=== PATIENT | female | born 1980 | race Asian ===

== ENCOUNTER 2024-01-07 09:36 | Outpatient (REF) | payer MEDICAID, SELFPAY ==
[2024-01-07 11:14] LABS: MANUAL DIFF FLAG NO
[2024-01-07 11:30] LABS: Basophils Percent Auto 0.6 % (0-2); Eosinophils Absolute Auto 0.1 X10*3/uL (0.0-0.4); Eosinophils Percent Auto 2.7 % (0-4); Hematocrit 32.1 % (37.0-47.0); Hemoglobin 10.1 g/dl (12.0-16.0); Imm Gran Abs Auto 0.02 X10*3/uL (0.00-0.03); Imm Gran Pct Auto 0.4 % (0.0-0.4); Lymphocytes Absolute Auto 1.4 X10*3/uL (1.2-4.9); Lymphocytes Percent Auto 26.3 % (20-40); Mean Corpuscular HGB Conc 31.5 g/dl (31.0-35.0); Mean Corpuscular Hemoglobin 24.1 pg (27.0-33.0); Mean Corpuscular Volume 76.6 fL (80.0-98.0); Mean Platelet Volume 10.4 fL (9.4-12.3); Monocytes Absolute Auto 0.4 X10*3/uL (0.1-1.2); Monocytes Percent Auto 7.5 % (2-11); Neutrophils Absolute Auto 3.3 x10*3/uL (2.0-8.3); Neutrophils Percent Auto 62.5 % (45-73); Platelet Count 225 X10*3/uL (160-400); Red Blood Count 4.19 X10*6/uL (4.20-5.50); Red Cell Distribution Width 14.6 % (11.0-16.0); White Blood Count 5.2 X10*3/uL (4.8-10.8)
[2024-01-07 11:56] LABS: Alanine Aminotransferase 8 U/L (0-31); Albumin Level 3.9 g/dL (3.5-5.0); Alkaline Phosphatase 46 U/L (39-117); Anion Gap 12 (12-20); Aspartate Amino Transferase 12 U/L (5-31); Bilirubin Total 0.5 mg/dL (0.0-1.0); Blood Urea Nitrogen 8 mg/dL (9-16); Calcium 9.6 mg/dL (8.4-10.2); Carbon Dioxide 23 mmol/L (22-29); Chloride 109 mmol/L (96-108); Estimated Glomerular Filt Rate > 60; Glucose Random 98 mg/dL (60-115); Potassium 4.3 mmol/L (3.3-5.1); Sodium 140 mmol/L (135-145); Total Protein 6.8 g/dL (6.5-8.0); Uric Acid 4.2 mg/dL (2.4-5.7)
== END 2024-01-07 09:37 | disposition home or self-care (01) ==
LOC: HO.HHCL 09:36
PROVIDERS: Visit Provider Nurse Practitioner Family
DX: M25.50 Pain in unspecified joint (principal)
CPT/HCPCS: 36415; 80053; 84550; 85025

== ENCOUNTER 2024-01-20 14:36 | Outpatient (REF) | payer MEDICAID, SELFPAY ==
[2024-01-20 17:15] LABS: Iron 27 mcg/dL (30-160); Percent Iron Saturation 8 % (15-50); Total Iron Binding Capacity 348 mcg/dL (228-428); Unsaturated Iron Binding 321 ug/dL
[2024-01-20 17:21] LABS: Ferritin 8 ng/mL (10-250)
== END 2024-01-20 14:37 | disposition home or self-care (01) ==
LOC: HO.HHCL 14:36
PROVIDERS: Visit Provider Nurse Practitioner Family
DX: R79.89 Other specified abnormal findings of blood chemistry (principal)
CPT/HCPCS: 36415; 82728; 83540

== ENCOUNTER 2024-08-19 20:31 | Emergency (ER) | payer MEDICAID, OTHER, SELFPAY ==
[2024-08-19 20:40] VITALS: BP 108/63; PULSE 76; RESP 18; TEMP 36.3; O2SAT 99; BMI 20.7
[2024-08-19 21:08] LABS: MANUAL DIFF FLAG NO
[2024-08-19 21:09] LABS: Basophils Percent Auto 0.3 % (0-2); Eosinophils Percent Auto 0.5 % (0-4); Hematocrit 33.4 % (37.0-47.0); Hemoglobin 11.3 g/dl (12.0-16.0); Imm Gran Abs Auto 0.02 X10*3/uL (0.00-0.03); Imm Gran Pct Auto 0.3 % (0.0-0.4); Lymphocytes Absolute Auto 2.1 X10*3/uL (1.2-4.9); Lymphocytes Percent Auto 28.6 % (20-40); Mean Corpuscular HGB Conc 33.8 g/dl (31.0-35.0); Mean Corpuscular Hemoglobin 27.2 pg (27.0-33.0); Mean Corpuscular Volume 80.3 fL (80.0-98.0); Mean Platelet Volume 10.1 fL (9.4-12.3); Monocytes Absolute Auto 0.7 X10*3/uL (0.1-1.2); Monocytes Percent Auto 8.8 % (2-11); Neutrophils Absolute Auto 4.5 x10*3/uL (2.0-8.3); Neutrophils Percent Auto 61.5 % (45-73); Platelet Count 208 X10*3/uL (160-400); Red Blood Count 4.16 X10*6/uL (4.20-5.50); White Blood Count 7.4 X10*3/uL (4.8-10.8)
[2024-08-19 21:23] LABS: Alanine Aminotransferase 7 U/L (0-31); Alkaline Phosphatase 42 U/L (39-117); Anion Gap 11 (12-20); Aspartate Amino Transferase 21 U/L (5-31); Bilirubin Total 0.3 mg/dL (0.0-1.0); Blood Urea Nitrogen 9 mg/dL (9-16); Calcium 9.1 mg/dL (8.4-10.2); Carbon Dioxide 25 mmol/L (22-29); Chloride 110 mmol/L (96-108); Estimated Glomerular Filt Rate > 60; Glucose Random 96 mg/dL (60-115); Potassium 3.8 mmol/L (3.3-5.1); Sodium 142 mmol/L (135-145); Total Protein 6.7 g/dL (6.5-8.0)
== END 2024-08-20 01:38 | disposition left against medical advice (07) ==
LOC: HO.ED 08-20 01:37
PROVIDERS: Emergency Provider Emergency Medicine
DX: R51.9 Headache, unspecified (principal)
CPT/HCPCS: 36415; 80053; 85025; 99281

== ENCOUNTER 2024-08-24 16:29 | Outpatient (REF) | payer MEDICAID, OTHER, SELFPAY ==
--- OUTSIDE RECORDS SUMMARY | 2024-08-24 19:00 | XMS_ITS | Clinical Summary ---
Author Organization [facility] Address [address] [place] [address] Phone Care Team Providers Care Bean Roaster Name Role Phone Physician, Pcp Unknown Primary Care Provider Sana vailable Allergies No known active allergies Encounters Date Type Department Care Team Description 08/23/2024 2:00 PM EDT - 08/23/2024 6:51 PM EDT Emergency [facility] Emergency [address] [place] [address] Discharge Disposition: Home or Self Care from Last 3 Months Social History Tobacco Use Types Packs/Day Years Used Date Smoking Tobacco: Never Tobacco Cessation:Counseling Given: Not Answered Alcohol Use Standard Drinks/Week Comments Never 0 (1 standard drink = 0.6 oz pur e alcohol) Comments Unknown Sex and Gender Information Value Date Recorded Sex Assigned at Not on file Legal Sex Female 2:00 PM EDT Gender Identity Not on file Sexual Orientation Not on file Obstetrics History Last Filed Vital Signs Vital Sign Reading Time Taken Comments Blood Pressure 109/72 08/23/2024 2:12 PM EDT Pulse 58 08/23/2024 2:12 PM EDT Temperature 36.7 ??C (98.1 ??F) 08/23/2024 2:12 PM ED T Respiratory Rate 16 08/23/2024 2:12 PM EDT Oxygen Saturation 96% 08/23/2024 2:12 PM EDT Inhaled Oxygen Concentration - - Weight 47.2 kg (104 lb) 08/23/2024 2:12 PM EDT Height 149.9 cm (4' 11 ) 08/23/2024 2:12 PM EDT Body Mass Index 21.01 08/23/2024 2:12 PM EDT Plan of Treatment Health Maintenance Due Date Last Done Comments Breast Cancer Screening 1981 Cervical Cancer Screening: P ap Smear 2002 COVID-19 Vaccine (2023-2 5 season) 2024 Hepatitis B Vaccines (2 of 3 - 19+ 3-dose series) 08/16/2024 07/19/2024 Depression Screening 08/24/2024 HIV Screening 08/24/2024 Hepatitis C Screening 08/24/2024 Social Influencers of Health Screening 08/24/2024 DTaP,Tdap,and Td Vaccines (2 - Td or Tdap) 07/19/2034 07/19/2024 Influenza Vaccine Completed 07/19/2024 MMR Vaccines Aged Out 07/19/2024 No longer eligi ble based on patient's age to complete this topic Varicella Vaccines Aged Out 07/19/2024 No longer eligible based on patient's age to complete this topic HIB Vaccines Aged Out No longer eligi ble based on patient's age to complete this topic HPV Vaccines Aged Out No longer eligi ble based on patient's age to complete this topic Hepatitis A Vaccines Aged Out No long er eligible based on patient's age to complete this topic IPV Vaccines Aged Out No longer eligi ble based on patient's age to complete this topic Meningococcal ACWY Vaccine Aged Out N o longer eligible based on patient's age to complete this topic Meningococcal B Vaccine Aged Out No l onger eligible based on patient's age to complete this topic Pneumococcal Vaccine: Pediat rics (0 to 5 Years) and At-Risk Patients (6 to 64 Years) Aged Out No longer eligi ble based on patient's age to complete this topic RSV Immunization Patients Un angel 20 months Aged Out No longer eligible b ased on patient's age to complete this topic Procedures Procedure Name Priority Date/Time Associated Diagnosis Comments HEPATITIS B CORE ANTIBODY IGM STAT 08/23/2024 2:25 PM EDT HEPATITIS B SURFACE ANTIBODY STAT 08/23/2024 2:25 PM EDT COMPREHENSIVE METABOLIC PANEL STAT 08/23/2024 2:25 PM EDT from Last 3 Months Results * Hepatitis B core antibody IgM (08/23/2024 2:25 PM EDT) Hep B Core IgM Negative Negative LAB CHEMISTRY METHOD 08/23/2024 6:[address] [facility] Blood Venous blood specimen / Unknown Venipuncture / Unknown 08/23/2024 2:25 PM EDT 08/23/2024 2:34 PM EDT [facility] - 08/23/2024 6:53 PM EDT Over the counter supplements containing high doses of biotin may interfere with this assay. ??If interference is suspected, patients shoud be retested after refraining from biotin supplements for 72 hours. us Vern Jarvis MD LAB BLOOD ORDERABLES Final Resu lt Performing Organization Address [facility] Co de Phone Number [facility] [address] [place] [address], [place] [phone] * (ABNORMAL) Hepatitis B surface antibody (08/23/2024 2:25 PM EDT) Hepatitis B Surface Ab Positive (A) Negative LAB CHEMISTRY METHOD 08/23/2024 3:[address] [facility] Hepatitis B Surface Ab Quantitative >1,000.0 mIU/mL LAB CHEMISTRY METHOD 08/23/2024 3:[address] [facility] Blood Venous blood specimen / Unknown Venipuncture / Unknown 08/23/2024 2:25 PM EDT 08/23/2024 2:[address] [facility] - 08/23/2024 3:48 PM EDT >=10 mIU/mL is considered to be consistent with immunity. us Vern Jarvis MD LAB BLOOD ORDERABLES Final Resu lt Performing Organization Address [facility]/ZIP Co de Phone Number [facility] [address] [place] [address], [place] [phone] * Comprehensive metabolic panel (08/23/2024 2:25 PM EDT) Pathologist [facility] Sodium 140 133 - 145 mmol/L LAB CHEMISTRY METHOD 08/23/2024 3:07 PM [facility] Potassium 4.2 3.5 - 5.5 mmol/L LAB CHEMISTRY METHOD 08/23/2024 3:07 PM [facility] Chloride 110 96 - 110 mmol/L LAB CHEMISTRY METHOD 08/23/2024 3:07 PM [facility] CO2 25 21 - 32 mmol/L LAB CHEMISTRY METHOD 08/23/2024 3:07 PM [facility] Anion Gap 5 3 - 11 LAB CHEMISTRY METHOD 08/23/2024 3:07 PM [facility] Glucose 78 70 - 100 mg/dL LAB CHEMISTRY METHOD 08/23/2024 3:07 PM [facility] BUN 7 5 - 25 mg/dL LAB CHEMISTRY METHOD 08/23/2024 3:07 PM [facility] Creatinine 0.53 0.50 - 1.10 mg/dL LAB CHEMISTRY METHOD 08/23/2024 3:07 PM [facility] eGFR 118 >=60 mL/min/1. 73m2 LAB CHEMISTRY METHOD 08/23/2024 3:07 PM [facility] Comment:Calculation based on the??Chronic Kidney Disease Epidemiology Collaboration (CKD-EPI) equation refit??without adjustment for race. BUN/Creatinine Ratio 13.2 LAB CHEMISTRY METHOD 08/23/2024 3:07 PM [facility] Calcium 9.0 8.5 - 10.5 mg/dL LAB CHEMISTRY METHOD 08/23/2024 3:07 PM [facility] AST (SGOT) 16 10 - 42 unit/L LAB CHEMISTRY METHOD 08/23/2024 3:07 PM [facility] ALT (SGPT) 15 10 - 60 unit/L LAB CHEMISTRY METHOD 08/23/2024 3:07 PM [facility] Alkaline Phosphatase 46 42 - 121 unit/L LAB CHEMISTRY METHOD 08/23/2024 3:[address] [facility] Total Protein 6.8 6.0 - 8.0 g/dL LAB CHEMISTRY METHOD 08/23/2024 3:[address] [facility] Albumin 3.6 3.2 - 5.0 g/dL LAB CHEMISTRY METHOD 08/23/2024 3:[address] [facility] Total Bilirubin 0.4 0.0 - 1.4 mg/dL LAB CHEMISTRY METHOD 08/23/2024 3:[address] [facility] Blood Venous blood specimen / Unknown Venipuncture / Unknown 08/23/2024 2:25 PM EDT 08/23/2024 2:34 PM EDT Vern Jarvis MD LAB BLOOD ORDERABLES Final Resu lt [facility] [address] [place] [address], from Last 3 Months Insurance MEDICAID - [place] Care Teams Bean Roaster Relationship Specialty Start Date End Date Physician, Pcp Unknown PCP - General 08/23/24
--- OUTSIDE RECORDS SUMMARY | 2024-08-24 19:00 | XMS_ITS | Clinical Summary ---
Author Organization [employer] Address [address] [facility] [address] [place] [address] Care Team Providers Care Gum Mixer Name Role Phone Unavailable Primary Care Provider Unavailabl e Allergies No known active allergies Medications ferrous sulfate 325 (65 Fe) MG EC tablet Take 1 tablet (325 mg) by mouth with breakfast. Do not crush, chew, or split. 30 tablet 01/21/2024 01/21/20 25 Active dolutegravir (Tivicay) 50 MG tablet Take 1 tablet (50 mg) by mouth Once per day. For 28 days 28 tablet 08/24/2024 Active emtricitabine-t enofovir DF (Truvada) 200-300 MG tablet Take 1 tablet by mouth Once per day. For 28 days 30 tablet 08/24/2024 08/25/19 26 Active ibuprofen 800 MG tablet Take 1 tablet (800 mg) by mouth every 8 (eight) hours if needed for moderate pain or fever. 30 tablet 08/24/2024 09/24/19 25 Active Active Problems Problem Noted Date Diagnosed Date Accident caused by a hypodermic needle Assessment & Plan (08/24/2024 4:31 PM EDT): Needle prick x2 days ago at medical facility. Very faint needle prick wound. No swelling, erythema or induration. -discussed pt needs to get her second Hep B shot 09/18/24. -prescribed dolutegravir (Tivicay) 50 MG and emtricitabine-tenofovir DF (Truvada) 200-300 MG 08/24/24 -ordered HIV, Hep B and C antibodies 08/24/24 -scheduled f/u 10/05/24 for follow-up HIV, Hep B and C testing. Intractable headache 08/24/2024 Assessment & Plan (08/24/2024 4:20 PM EDT): Occasional, non-specific headache pattern. Minimal to no relief with at home medications. Denies preceding nausea or aura. -prescribed ibuprofen 800 MG 08/25/23 Iron deficiency anemia 01/21/2024 COVID-19 virus infection 12/02/2023 Assessment & Plan (12/02/2023 4:17 PM EDT): Pt w dry cough, neck pain,BEJARANO,myalgias, VS are wnl Here w covid 19 +, flu neg test result Pt has mild covid symptoms , neck pain appears most likely muscular in nature w no rigidity on exam Reports got 3 vaccines of COVID 19 in [place] -no indication for tx w paxlovid given no comorbidities and no in age range -hydration advised - tylenol ,NSAIDs PRN -advised hand hygiene,isolation,mask use and to come out in 5 days of symptoms w N95 for 10 days use if asymptomatic by then -alarm signs and symptoms discussed -send message for new pt apt needed to start care w new PCP Encounters Date Type Department Care Team Description 08/24/2024 3:40 PM EDT Office Visit [facility] [address] [place] [phone] Annabel Carter MD Accident caused by hypodermic needle, initial encounter (Primary Dx); Intractable headache, unspecified chronicity pattern, unspecified headache type 08/24/2024 Travel 07/19/2024 3:55 PM EDT Nurse Only [facility] [address] [place], [place] [phone] Jeana Pham LPN Encounter for immunization (Primary Dx) 07/19/2024 Travel from Last 3 Months Immunizations Name Administration Dates Next Due Hep B, adult 07/19/2024 Influenza, seasonal, injectable, preservative fr ee 07/19/2024 MMR 07/19/2024 Tdap 07/19/2024 Varicella 07/19/2024 Social History Tobacco Use Types Packs/Day Years Used Date Smoking Tobacco: Never Smokeless Tobacco: Never Tobacco Cessation:Counseling Given: Not Answered Alcohol Use Standard Drinks/Week Comments Never 0 (1 standard drink = 0.6 oz pur e alcohol) Comments Unknown Sex and Gender Information Value Date Recorded Sex Assigned at Female 12/02/2023 1:58 PM EDT Legal Sex Female 12:41 PM EDT Gender Identity Female 12/02/2023 1:58 PM EDT Sexual Orientation Straight 12/02/2023 1: 58 PM EDT Last Filed Vital Signs Vital Sign Reading Time Taken Comments Blood Pressure 119/65 08/24/2024 3:36 PM EDT Pulse 71 08/24/2024 3:36 PM EDT Temperature 36.8 ??C (98.3 ??F) 08/24/2024 3:36 PM ED T Respiratory Rate 19 08/24/2024 3:36 PM EDT Oxygen Saturation 99% 08/24/2024 3:36 PM EDT Inhaled Oxygen Concentration - - Weight 49.4 kg (109 lb) 08/24/2024 3:36 PM EDT Height - - Body Mass Index - - Plan of Treatment Upcoming Encounters Date Type Department Care Team (Late st Contact Info) Description 10/05/2024 1:00 PM EDT Office Visit [facility] [address] [place] [phone] 12/10/2024 10:30 AM EDT Office Visit [facility] [address] [place] [phone] [facility] [address] [place] [address] Health Maintenance Due Date Last Done Comments Depression Screening 1981 HIV Screening 1981 SDOH Screening 1981 Alcohol/Substance Use Screening 1993 Family Planning (PISQ) 1996 Hepatitis C Screening 1999 Pap Smear 2002 Cervical Cancer Screening 2011 HPV/Cotest 2011 Mammogram 2021 COVID-19 Vaccine ( - 2023-2 5 season) 2024 Hepatitis B Vaccines (2 of 3 - 19+ 3-dose series) 08/16/2024 07/19/2024 IPV Vaccines (2 of 3 - Adult catch-up series) 08/16/2024 07/19/2024 Tobacco Screening 08/24/2025 08/24/2024 Zoster Vaccines (1 of 2) 2031 DTaP/Tdap/Td Vaccines (2 - T d or Tdap) 07/19/2034 07/19/2024 RSV Patients and Pa tients Aged 60 years or older (1 - 1-dose 75+ series) 2056 Influenza Vaccine Completed 07/19/2024 HIB Vaccines Aged Out No longer eligi ble based on patient's age to complete this topic HPV Vaccines Aged Out No longer eligi ble based on patient's age to complete this topic Hepatitis A Vaccines Aged Out No long er eligible based on patient's age to complete this topic Meningococcal Vaccine Aged Out No janee george eligible based on patient's age to complete this topic Pneumococcal Vaccine: Pediat rics (0 to 5 Years) and At-Risk Patients (6 to 49) Years) Aged Out No longer elig ible based on patient's age to complete this topic RSV under 20 months Aged Out No longe r eligible based on patient's age to complete this topic Rotavirus Vaccines Aged Out No longer eligible based on patient's age to complete this topic Insurance [email or web address] [facility] F[facility]
--- OUTSIDE RECORDS SUMMARY | 2024-08-24 19:00 | XMS_ITS | Encounter Summary ---
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- reports headache today Encounter Details Date Type Department Care Team (Late st Contact Info) Description 08/23/2024 2:00 PM EDT - 08/23/2024 6:51 PM EDT Emergency [facility] Emergency [address] [place] [address] Discharge Disposition: Home or Self Care Social History Tobacco Use Types Packs/Day Years [...] on file Sexual Orientation Not on file documented as of this encounter Last Filed Vital Signs Vital Sign Reading [...] Mass Index 21.01 08/23/2024 2:12 PM EDT documented in this encounter Discharge Disposition Disposition Code Departure Means Destination Home or Self Care documented in this encounter Progress Notes * Frederic Hernandez RN - 08/23/2024 2:07 PM EDT Pt was stuck by a needle yesterday while taking the trash out at work, reports needle broke the skin. Today she has complaints of headache and general malaise. documented in this encounter Plan of Treatment Not on file documented as of this encounter Procedures Procedure Name Priority Date/Time Associated Diagnosis Comments HEPATITIS B CORE ANTIBODY IGM STAT 08/23/2024 2:25 PM EDT HEPATITIS B SURFACE ANTIBODY STAT 08/23/2024 2:25 PM EDT COMPREHENSIVE METABOLIC PANEL STAT 08/23/2024 2:25 PM EDT documented in this encounter Results * Hepatitis B core antibody IgM (08/23/2024 2:25 PM EDT) Pathologist [facility] Hep B Core IgM Negative Negative LAB CHEMISTRY METHOD 08/23/2024 6:53 PM EDT [facility] Blood Venous blood specimen / Unknown Venipuncture / Unknown 08/23/2024 2:25 PM EDT 08/23/2024 2:34 PM EDT Narrative [facility] - 08/23/2024 6:53 PM EDT Over the counter supplements containing high doses of biotin may interfere with this assay. ??If interference is suspected, patients shoud be retested after refraining from biotin supplements for 72 hours. us Vern Jarvis MD LAB BLOOD ORDERABLES Final Resu lt [facility] [address] [place] [address], * (ABNORMAL) Hepatitis B surface antibody (08/23/2024 2:25 PM EDT) Pathologist [facility] Hepatitis B Surface Ab Positive (A) Negative LAB CHEMISTRY METHOD 08/23/2024 3:48 PM EDT [facility] Hepatitis B Surface Ab Quantitative >1,000.0 mIU/mL LAB CHEMISTRY METHOD 08/23/2024 3:48 PM EDT [facility] Blood Venous blood specimen / Unknown Venipuncture / Unknown 08/23/2024 2:25 PM EDT 08/23/2024 2:34 PM EDT Narrative [facility] - 08/23/2024 3:48 PM EDT >=10 mIU/mL is considered to be consistent with immunity. us Vern Jarvis MD LAB BLOOD ORDERABLES Final Resu lt [facility] [address] [place] [address], [place] [phone] * Comprehensive metabolic panel (08/23/2024 2:25 PM EDT) Sodium 140 133 - 145 mmol/L LAB CHEMISTRY METHOD 08/23/2024 3:07 PM [facility] Potassium 4.2 3.5 - 5.5 mmol/L LAB CHEMISTRY METHOD 08/23/2024 3:07 PM [facility] Chloride 110 96 - 110 mmol/L LAB CHEMISTRY METHOD 08/23/2024 3:07 PM [facility] CO2 25 21 - 32 mmol/L LAB CHEMISTRY METHOD 08/23/2024 3:07 PM [facility] Anion Gap 5 3 - 11 LAB CHEMISTRY METHOD 08/23/2024 3:07 PM [facility] Glucose 78 70 - 100 mg/dL LAB CHEMISTRY METHOD 08/23/2024 3:07 PM [facility] BUN 7 5 - 25 mg/dL LAB CHEMISTRY METHOD 08/23/2024 3:07 PM [facility] Creatinine 0.53 0.50 - 1.10 mg/dL LAB CHEMISTRY METHOD 08/23/2024 3:07 PM [facility] eGFR 118 >=60 mL/min/1. 73m2 LAB CHEMISTRY METHOD 08/23/2024 3:07 PM [facility] Comment:Calculation based on the??Chronic Kidney Disease Epidemiology Collaboration (CKD-EPI) equation refit??without adjustment for race. BUN/Creatinine Ratio 13.2 LAB CHEMISTRY METHOD 08/23/2024 3:07 PM [facility] Calcium 9.0 8.5 - 10.5 mg/dL LAB CHEMISTRY METHOD 08/23/2024 3:07 PM [facility] AST (SGOT) 16 10 - 42 unit/L LAB CHEMISTRY METHOD 08/23/2024 3:07 PM [facility] ALT (SGPT) 15 10 - 60 unit/L LAB CHEMISTRY METHOD 08/23/2024 3:07 PM [facility] Alkaline Phosphatase 46 42 - 121 unit/L LAB CHEMISTRY METHOD 08/23/2024 3:07 PM [facility] Total Protein 6.8 6.0 - 8.0 g/dL LAB CHEMISTRY METHOD 08/23/2024 3:07 PM [facility] Albumin 3.6 3.2 - 5.0 g/dL LAB CHEMISTRY METHOD 08/23/2024 3:07 PM [facility] Total Bilirubin 0.4 0.0 - 1.4 mg/dL LAB CHEMISTRY METHOD 08/23/2024 3:07 PM [facility] Blood Venous blood specimen / Unknown Venipuncture / Unknown 08/23/2024 2:25 PM EDT 08/23/2024 2:34 PM EDT us Vern Jarvis MD LAB BLOOD ORDERABLES Final Resu lt [facility] [address] [place] [address], [place] [phone] documented in this encounter Visit Diagnoses Not on filedocumented in this encounter Care Teams Gamma Ray Operator Relationship Specialty Start Date End Date Physician, Pcp Unknown PCP - General 08/23/24 documented as of this encounter
--- OUTSIDE RECORDS SUMMARY | 2024-08-24 19:00 | XMS_ITS | Encounter Summary ---
Author Organization [employer] Address [address] [facility] [address] [place] [address] Care Team Providers Care Machine Coil Assembler Name Role Phone Unavailable Primary Care Provider Unavailabl e Encounter Details Date Type Department Care Team (Late st Contact Info) Description 01/12/2024 Orders Only [facility] [address] [place] [address] Dana Vitale FNP [address] [place] [address] Abnormal complete blood count (Primary Dx) Social History Tobacco Use Types Packs/Day Years Used Date Smoking Tobacco: Never Smokeless Tobacco: Never Alcohol Use Standard Drinks/Week Comments Never 0 (1 standard drink = 0.6 oz pur e alcohol) Comments Unknown Sex and Gender Information Value Date Recorded Sex Assigned at Female 12/02/2023 1:58 PM EDT Legal Sex Female 12:41 PM EDT Gender Identity Female 12/02/2023 1:58 PM EDT Sexual Orientation Straight 12/02/2023 1: 58 PM EDT documented as of this encounter Plan of Treatment Upcoming Encounters Date Type Department Care Team (Late st Contact Info) Description 10/05/2024 1:00 PM EDT Office Visit [facility] [address] [place] [phone] 12/10/2024 10:30 AM EDT Office Visit [facility] [address] [place] [phone] Yuki Reddy FNP [address] [place] [address] Scheduled Orders Name Type Priority Associated Diagnoses Orde r Schedule Iron, TIBC And Ferritin Panel Lab Routine Abnormal complete blood count Expected: 01/12/2024 (Approximate), Expires: 01/11/2025 documented as of this encounter Procedures Procedure Name Priority Date/Time Associated Diagnosis Comments IRON AND TOTAL IRON BINDING CAPACITY Routine 01/20/2024 2:40 PM EDT Abnormal complete blood count FERRITIN Routine 01/20/2024 2:40 PM EDT Abnormal complete blood count documented in this encounter Results * (ABNORMAL) Ferritin (01/20/2024 2:40 PM EDT) Ferritin 8(L) 10 - 250 ng/mL [facility] 01/20/2024 2:40 PM EDT 01/20/2024 4:01 PM EDT [facility] LAB BLOOD ORDERABLES Final Resu lt Performing Organization Address City/[facility]/ZIP Co de Phone Number [facility] [address] [place] [phone] * (ABNORMAL) Iron And Total Iron Binding Capacity (01/20/2024 2:40 PM EDT) Iron 27(L) 30 - 160 mcg/dL [facility] Total Iron Binding Capacity 348 228 - 428 mcg/dL [facility] Percent Iron Saturation 8(L) 15 - 50 % [facility] Unsaturated Iron Binding 321 ug/dL [facility] 01/20/2024 2:40 PM EDT 01/20/2024 4:01 PM EDT [facility] LAB BLOOD ORDERABLES Final Resu lt Performing Organization Address City/[facility]/ZIP Co de Phone Number [facility] [address] [place] [address] [phone] documented in this encounter Visit Diagnoses Diagnosis Abnormal complete blood count- Primary Other abnormal blood chemistry documented in this encounter
--- OUTSIDE RECORDS SUMMARY | 2024-08-24 19:00 | XMS_ITS | Encounter Summary ---
Author Organization [employer] Address [address] [facility] [address] [place] [address] Care Team Providers Care Motion Picture Commentator Name Role Phone Unavailable Primary Care Provider Unavailabl e Encounter Details Date Type Department Care Team (Latest Contact Info) Description 08/24/2024 Travel Social History Tobacco Use Types Packs/Day Years [...] Description 10/05/2024 1:00 PM EDT Office Visit [facility] [address] [place] [address] 12/10/2024 10:30 AM EDT Office Visit [facility] [address] [place] [address] Yuki Reddy FNP [address] [place] [address] documented as of this encounter Visit Diagnoses Not on filedocumented in this encounter
--- OUTSIDE RECORDS SUMMARY | 2024-08-24 19:00 | XMS_ITS | Encounter Summary ---
Author Organization [employer] Address [address] [facility] [address] [place] [address] Care Team Providers Care Almond Sorter Name Role Phone Unavailable Primary Care Provider Unavailabl e Encounter Details Date Type Department Care Team (Late st Contact Info) Description 08/24/2024 3:40 PM EDT Office Visit [facility] [address] [place] [phone] Annabel Carter MD [address] [place] [id number] Accident caused by hypodermic needle, initial encounter (Primary Dx); Intractable headache, unspecified chronicity pattern, unspecified headache type Social History Tobacco Use Types Packs/Day Years [...] PM EDT documented as of this encounter Last Filed [...] - - Body Mass Index - - documented in this encounter Progress Notes * Annabel Carter MD - 08/24/2024 3:40 PM EDT Subjective Patient ID: Fina Oliver is a 44 y.o. female with past medical history of iron deficiency anemia who presents to walk in clinic for needle prick. Interpretor line used. Had first Hep B 07/19/24. notes about 2 days ago pt was pricked by a needle from a syringe while working. 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 Pt reports the puncture wound was swollen yesterday, but the swelling has resolved. She reports having occasional headaches. reports she has tried taking medication for the headaches but has no relief. Review of Systems Constitutional: Negative for fatigue, fever and unexpected weight change. Respiratory: Negative for cough. Cardiovascular: Negative for chest pain. Gastrointestinal: Negative for abdominal pain. Genitourinary: Negative for difficulty urinating. Skin: Positive for wound. Objective Visit Vitals BP 119/65 Pulse 71 Temp 98.3 ??F (36.8 ??C) (Oral) Resp 19 Wt 109 lb (49.4 kg) SpO2 99% Smoking Status Never Physical Exam Constitutional: Appearance: Normal appearance. Cardiovascular: Rate and Rhythm: Normal rate and regular rhythm. Heart sounds: Normal heart sounds. Pulmonary: Effort: Pulmonary effort is normal. Breath sounds: Normal breath sounds. Skin: Findings: Wound (well-healed, superficial puncture wound to right ring finger.) present. Neurological: General: No focal deficit present. Mental Status: She is alert. Psychiatric: Behavior: Behavior normal. Problem List Items Addressed This Visit Accident caused by a hypodermic needle - Primary Needle prick x2 days ago at medical facility. Very faint needle prick wound. No swelling, erythema or induration. -discussed pt needs to get her second Hep B shot 09/18/24. -prescribed dolutegravir (Tivicay) 50 MG and emtricitabine-tenofovir DF (Truvada) 200-300 MG 08/24/24 -ordered HIV, Hep B and C antibodies 08/24/24 -scheduled f/u 10/05/24 for follow-up HIV, Hep B and C testing. Relevant Orders HIV-1/2 Antigen and Antibodies, Fourth Generation, with Reflexes Hepatitis C Antibody with Reflex to HCV, RNA, Quantitative, Real-Time PCR Hepatitis B surface antigen, EIA Hepatitis B Surface Antibody, Qualitative Hepatitis B Core Antibody, Total Intractable headache Occasional, non-specific headache pattern. Minimal to no relief with at home medications. Denies preceding nausea or aura. -prescribed ibuprofen 800 MG 08/25/23 -No evidence of acute disease process. Suspect needle prick wound, small. -Will treat with HIV PrEP. -Got new patient appt. with PCP 12/2024. -ER precautions discussed. -Seek medical attention for worsening symptoms. I, Vic Esquivel, am serving as a scribe to document services personally performed by Dr. Mcclelland, based on the patient's response to questions by provider and providers statements to me. documented in this encounter Miscellaneous Notes * Assessment & Plan Note - Vic Esquivel - 08/24/2024 4:12 PM EDTAssociated Problem(s): Intractable headache Occasional, non-specific headache pattern. Minimal to no relief with at home medications. Denies preceding nausea or aura. -prescribed ibuprofen 800 MG 08/25/23 * Assessment & Plan Note - Vic Esquivel - 08/24/2024 4:08 PM EDTAssociated Problem(s): Accident caused by a hypodermic needle Needle prick x2 days ago at medical facility. Very faint needle prick wound. No swelling, erythema or induration. -discussed pt needs to get her second Hep B shot 09/18/24. -prescribed dolutegravir (Tivicay) 50 MG and emtricitabine-tenofovir DF (Truvada) 200-300 MG 08/24/24 -ordered HIV, Hep B and C antibodies 08/24/24 -scheduled f/u 10/05/24 for follow-up HIV, Hep B and C testing. documented in this encounter Plan of Treatment Upcoming Encounters Date Type Department Care Team (Late st Contact Info) Description 10/05/2024 1:00 PM EDT Office Visit [facility] [address] [place] [address] 12/10/2024 10:30 AM EDT Office Visit [facility] MEDICINE [address] [place] [address] [facility] [address] [place], [place] [phone] Scheduled Orders Name Type Priority Associated Diagnoses Orde r Schedule HIV-1/2 Antigen and Antibodies, Fourth Generation, with Reflexes Lab Routine Accident caused by hypodermic needle, initial encounter Expected: 08/24/2024 (Approximate), Expires: 08/24/2025 Hepatitis C Antibody with Reflex to HCV, RNA, Quantitative, Real-Time PCR Lab Routine Accident caused by hypodermic needle, initial encounter Expected: 08/24/2024 (Approximate), Expires: 08/24/2025 Hepatitis B surface antigen, EIA Lab Routine Accident caused by hypodermic needle, initial encounter Expected: 08/24/2024 (Approximate), Expires: 08/24/2025 Hepatitis B Surface Antibody, Qualitative Lab Routine Accident caused by hypodermic needle, initial encounter Expected: 08/24/2024 (Approximate), Expires: 08/24/2025 Hepatitis B Core Antibody, Total Lab Routine Accident caused by hypodermic needle, initial encounter Expected: 08/24/2024 (Approximate), Expires: 08/24/2025 documented as of this encounter Visit Diagnoses Diagnosis Accident caused by hypodermic needle, initial encounter- Primary Intractable headache, unspecified chronicity pattern, unspecified headache type documented in this encounter
[2024-08-25 08:06] LABS: HBS Num1 > 1000.00 mIU/mL (0-7.99); HBc Num1 0.08 S/CO (0.00-0.79); HBsAGNum1 0.28 S/CO (0.00-0.99); HIV AB/AG Nonreactive (Nonreactive); HIV Num 1 0.08 S/CO (0.00-0.99); Hepatitis B Core Antibody Nonreactive (Nonreactive); Hepatitis B Surface Antigen Negative (Negative); ~HepC Num1 0.15 S/CO (0.00-0.79); ~Hepatitis B Surface Antibody REACTIVE (Nonreactive); ~Hepatitis C Antibody Nonreactive (Nonreactive)
== END 2024-08-24 16:30 | disposition home or self-care (01) ==
LOC: HO.HHCL 16:29
PROVIDERS: Visit Provider Family Medicine
DX: Z11.59 Encounter for screening for other viral diseases (principal); Z77.21 Contact with and (suspected) exposure to potentially hazardous body fluids
CPT/HCPCS: 36415; 86704; 86706; 86803; 87340; 87389

== ENCOUNTER 2024-10-21 15:56 | Outpatient (REF) | payer MEDICAID, SELFPAY ==
[2024-10-21 17:25] LABS: MANUAL DIFF FLAG NO
[2024-10-21 17:38] LABS: Basophils Percent Auto 0.6 % (0-2); Eosinophils Absolute Auto 0.1 X10*3/uL (0.0-0.4); Eosinophils Percent Auto 1.5 % (0-4); Hematocrit 32.6 % (37.0-47.0); Hemoglobin 10.3 g/dl (12.0-16.0); Imm Gran Abs Auto 0.04 X10*3/uL (0.00-0.03); Imm Gran Pct Auto 0.7 % (0.0-0.4); Lymphocytes Absolute Auto 1.5 X10*3/uL (1.2-4.9); Lymphocytes Percent Auto 28.4 % (20-40); Mean Corpuscular HGB Conc 31.6 g/dl (31.0-35.0); Mean Corpuscular Hemoglobin 25.9 pg (27.0-33.0); Mean Corpuscular Volume 81.9 fL (80.0-98.0); Mean Platelet Volume 10.7 fL (9.4-12.3); Monocytes Absolute Auto 0.5 X10*3/uL (0.1-1.2); Monocytes Percent Auto 8.6 % (2-11); Neutrophils Absolute Auto 3.2 x10*3/uL (2.0-8.3); Neutrophils Percent Auto 60.2 % (45-73); Platelet Count 222 X10*3/uL (160-400); Red Blood Count 3.98 X10*6/uL (4.20-5.50); Red Cell Distribution Width 13.4 % (11.0-16.0); White Blood Count 5.4 X10*3/uL (4.8-10.8)
[2024-10-21 17:43] LABS: Rheumatoid Factor < 13.0 IU/mL (<15.0)
[2024-10-21 17:44] LABS: C Reactive Protein < 0.10 mg/dL (< or = 0.50); Iron 24 mcg/dL (30-160); Percent Iron Saturation 7 % (15-50); Total Iron Binding Capacity 348 mcg/dL (228-428); Unsaturated Iron Binding 324 ug/dL
[2024-10-21 18:00] LABS: Ferritin 8 ng/mL (10-250); TSH reflex Free T4 2.01 uIU/mL (0.32-4.0); Vitamin D 25-OH Total 15.2 ng/mL (>30)
--- OUTSIDE RECORDS SUMMARY | 2024-10-21 18:11 | XMS_ITS | Encounter Summary ---
Author Organization [employer] Address [address] [facility] [address] [place] [address] Care Team Providers Care Shingle Carrier Name Role Phone Unavailable Primary Care Provider Unavailabl e Encounter Details Date Type Department Care Team (Late Contact Info) Description 01/12/2024 Orders Only [facility] [address] [place], [place] [phone] Dana Vitale FNP [address] [place] [address] Abnormal complete blood count (Primary Dx) Social [...] Encounters Date Type Department Care Team (Late Contact Info) Description 12/10/2024 10:30 AM EDT Office Visit [facility] [address] [place] [address] Yuki Reddy FNP [address] [place] [address] Scheduled Orders Name Type Priority Associated Diagnoses [...] EDT) Ferritin 8(L) 10 - 250 ng/mL [facility] 01/20/2024 2:40 PM EDT 01/20/2024 4:01 PM EDT [employer] LAB BLOOD ORDERABLES Final Resu lt Performing Organization Address [facility]/ZIP Co de Phone Number [facility] [address] [place] [phone] * (ABNORMAL) Iron And Total Iron Binding Capacity (01/20/2024 2:40 PM EDT) Iron 27(L) 30 - 160 mcg/dL [facility] Total Iron Binding Capacity 348 228 - 428 mcg/dL [facility] Percent Iron Saturation 8(L) 15 - 50 % [facility] Unsaturated Iron Binding 321 ug/dL [facility] 01/20/2024 2:40 PM EDT 01/20/2024 4:01 PM EDT [employer] LAB BLOOD ORDERABLES Final Resu lt Performing Organization Address City/[facility]/ZIP Co de Phone Number [facility] [address] [place] [phone] documented in this encounter Visit Diagnoses Diagnosis Abnormal complete blood count- Primary Other abnormal blood chemistry documented in this encounter
[2024-10-21 18:12] LABS: Folate 5.8 ng/mL (> or = 4.0); Vitamin B12 197 pg/mL (200-900)
[2024-10-21 18:15] LABS: Erythrocyte Sedimentation Rate 2 MM/HR (0-20)
[2024-10-22 08:26] LABS: HBc Num1 0.06 S/CO (0.00-0.79); HBsAGNum1 0.44 S/CO (0.00-0.99); HIV AB/AG Nonreactive (Nonreactive); HIV Num 1 0.07 S/CO (0.00-0.99); Hepatitis B Core Antibody Nonreactive (Nonreactive); Hepatitis B Surface Antigen Negative (Negative); ~HepC Num1 0.13 S/CO (0.00-0.79); ~Hepatitis B Surface Antibody REACTIVE (Nonreactive); ~Hepatitis C Antibody Nonreactive (Nonreactive)
[2024-10-26 15:05] LABS: Anti Nuclear Antibody Screen POSITIVE (NEGATIVE)
== END 2024-10-21 15:57 | disposition home or self-care (01) ==
LOC: HO.HHCL 15:56
PROVIDERS: Visit Provider Family Medicine
DX: M25.50 Pain in unspecified joint (principal); W46.0XXD Contact with hypodermic needle, subsequent encounter; X58.XXXD Exposure to other specified factors, subsequent encounter
CPT/HCPCS: 36415; 82306; 82607; 82728; 82746; 83540; 84443; 84550; 85025; 85652; 86038; 86039; 86140; 86431; 86704; 86706; 86803; 87340; 87389